=== PATIENT | female | born 1955 | race Caucasian/White ===

== ENCOUNTER 2021-11-21 05:53 | Day surgery (SDC) | payer OTHER ==
[~2021-11-21] VITALS: Ht 160 cm; Wt 86.4 kg
[~2021-11-21 05:53] MED LIST: SODIUM CHLORIDE 0.9% 1,000 ML IV ONE
[2021-11-21] MEDS ORDERED: LIDOCAINE 4% 50 ML SOLUTION TP ONE (05:54)
[2021-11-21] MEDS ORDERED: ALBUTEROL SULFATE 2.5 MG/0.5 ML NEB SOLUTION NEB ONE (05:54)
[2021-11-21] MEDS ORDERED: BENZOCAINE 20% 50 MCG/SPRAY 57 GM TP ONE (05:54)
[2021-11-21] MEDS ORDERED: LIDOCAINE 2% 11 ML JELLY TP ONE (05:54)
[2021-11-21] MEDS ORDERED: SODIUM CHLORIDE 0.9% 1,000 ML ONE (06:43)
[2021-11-21 06:49] LABS: COVID AG,FIA SOURCE NASAL SWAB
[2021-11-21] MEDS ORDERED: BECL10.6 IH (06:55)
[2021-11-21] MEDS ORDERED: LISI-658 PO (06:55)
[2021-11-21] MEDS ORDERED: DAPA5TAB PO (06:55)
[2021-11-21] MEDS ORDERED: METO-558 PO (06:55)
[2021-11-21] MEDS ORDERED: MONT-35 PO (06:55)
[2021-11-21] MEDS ORDERED: GABA-1181 PO (06:55)
[2021-11-21] MEDS ORDERED: LEVO150 PO (06:55)
[2021-11-21] MEDS ORDERED: FAMO20 PO (06:55)
[2021-11-21 07:56] LABS: GLUCOMETER DEV NAME(LOC) SDS.; GLUCOSE,POINT OF CARE 127 MG/DL (70-110)
[2021-11-21] MEDS ORDERED: MIDAZOLAM HCL 5 MG/ML VIAL ONE (08:21)
[2021-11-21] MEDS ORDERED: FentaNYL CITRATE PF 100 MCG/2 ML VIAL ONE (08:21)
[2021-11-21] MEDS ORDERED: MethylPREDNISolone SOD SUCC 125 MG/2 ML VIAL ONE (09:07)
[2021-11-21] MEDS ORDERED: MethylPREDNISolone SOD SUCC 125 MG/2 ML VIAL IVP ONE (09:30)
[2021-11-21] MEDS ORDERED: BECL10.62 IH (10:47)
[2021-11-21] MEDS ORDERED: ATOR10TA69 PO (10:47)
[2021-11-21] MEDS ORDERED: ALBU8HFA IH (10:47)
[2021-11-21] MEDS ORDERED: DULO-114 PO (10:47)
[2021-11-21] MEDS ORDERED: AMLO10TA55 PO (10:47)
== END 2021-11-21 10:55 | disposition home or self-care (01) ==
LOC: SURGERY 05:53
PROVIDERS: ATTEND Internal Medicine Critical Care Medicine
DX: J38.4 Edema of larynx (principal); B37.0 Candidal stomatitis; Z96.659 Presence of unspecified artificial knee joint; Z98.890 Other specified postprocedural states; Z79.899 Other long term (current) drug therapy; Z20.822 Contact with and (suspected) exposure to COVID-19
CPT/HCPCS: 31623; 82962; 87206; 87101; 87220; 87070; 31624; 71045; 87015; 87426; J3010; J2930; J2250; Q9967; J7030; C9803; J7613; Z7610